=== PATIENT | female | born 1995 | race Caucasian/White ===

== ENCOUNTER 2016-12-29 15:35 | Emergency (ER) | payer OTHER ==
[~2016-12-29] VITALS: Ht 165.1 cm; Wt 59.4 kg
[2016-12-29 15:58] VITALS: TEMP 36.8; Ht 165.1 cm; Wt 59.4 kg
[2016-12-29] MEDS ORDERED: SODIUM CHLORIDE 0.9% 250ML 250 ML IV STA (16:31)
[2016-12-29] MEDS ORDERED: SODIUM CHLORIDE 0.9% 1000ML 1,000 ML IV STA (16:31)
[2016-12-29 16:44] LABS: BASO % 0.4 %; BASO ABS # 0.02 K/uL (0-0.2); COMPLETE YES; EOS % 1.9 %; HEMATOCRIT 43.7 % (37-47); LYMPH % 37.9 %; LYMPH ABS # 2.03 K/uL (1.2-3.4); MEAN CELL VOLUME 92.2 fL (80-100); MEAN CORPUSCULAR HEMOGLOBIN 31.6 pg (25-34); MEAN CORPUSCULAR HGB CONC 34.3 g/dl (32-36); MEAN PLATELET VOLUME 10.6 fL (7.4-10.4); MONO % 5.6 %; NEUT % 54.2 %; PLATELET COUNT 243 K/uL (130-400); RED BLOOD COUNT 4.74 M/uL (4.2-5.4); WHITE BLOOD COUNT 5.35 K/uL (4.8-10.8)
[2016-12-29 16:55] LABS: BUN/CREATININE RATIO 12.8 (10-20); CALCIUM 9.2 mg/dl (8.5-10.1); CREATININE 0.83 mg/dl (0.60-1.20); MAGNESIUM 2.2 mg/dl (1.8-2.4); POTASSIUM 3.8 mmol/L (3.5-5.1)
--- NOTE | 2016-12-29 16:58 | EMERGENCY ROOM VISIT NOTE ---
History Report prepared by Genie: Kaiden Finch Under the Supervision of: Dr. Taylor Buck M.D. First contact with patient: 16:09 Chief Complaint: ABDOMINAL PAIN Stated Complaint: ABDOMINAL/BACK PAIN, NAUSEA, DIARHEA Nursing Triage Summary: abd pain and nausea for greater than 1 week pt went to [facility] and referred to ER for ct and us nausea diarrhea first few days History of Present Illness The patient is a 21 year old female who presents to the Emergency Room with complaints of worsening left upper abdominal pain beginning ten days prior to arrival. She currently rates her discomfort as an 8/10 in severity. The patient associates nausea and upper left abdominal pain that radiates to her upper right abdomen and back with today's symptoms. She notes the abdominal pain has worsened over the past 3-4 days. She states she was seen by the [facility], and they ran some blood work. The patient notes she was seen by KOEZY today, who referred the patient to the ED for further blood work , an ultrasound, and a CT scan. She denies a family history of gallstones. The patient denies urinary symptoms, vomiting, and chance of . Source of History: patient Onset: ten days QA SPECIALIST Position: abdomen (LUQ) Symptom Intensity: 8/10 Timing: worsening Associated Symptoms: + abdominal pain, + back pain, + nausea, No urinary symptoms, No vomiting Review of Systems See HPI for pertinent positives & negatives. A total of 10 systems reviewed and were otherwise negative. Past Medical & Surgical Medical Problems: (1) No pertinent past medical history Family History Patient reports no known family medical history. Social History Smoking Status: Never Smoker Marital Status: single Occupation Status: [employer] student Current/Historical Medications Scheduled Control Pills ( Control Pills), 1 TAB PO DAILY Pantoprazole (Protonix), 40 MG PO DAILY Allergies Coded Allergies: No Known Allergies (Unverified , 12/29/16) Physical Exam Vital Signs Date Time Temp Pulse Resp B/P Pulse Ox O2 Delivery O2 Flow Rate FiO2 12/29/16 20:48 57 20 127/71 100 12/29/16 19:18 55 18 133/78 99 Room Air 12/29/16 17:04 47 12/29/16 16:50 50 20 114/78 100 Room Air 12/29/16 15:58 36.8 51 20 122/75 97 Room Air Physical Exam Vital signs reviewed. General: Well-appearing female, in no significant distress. HEENT: No scleral icterus, PERRLA, neck supple. Atraumatic. Cardiovascular: Regular rate and rhythm, no extra sounds. Pulmonary: Clear to auscultation bilaterally, normal work of breathing. Abdomen: Epigastric and left upper quadrant tenderness, minimal guarding. Soft, nondistended, positive bowel sounds. Musculoskeletal: Atraumatic, no peripheral edema. Neurologic: Patient awake alert and oriented x 3, full strength in all 4 extremities. Cranial nerves 2 through 12 grossly intact. Skin: Warm, dry, no rash Medical Decision & Procedures ER Provider Diagnostic Interpretation: X-ray results as stated below per my interpretation and radiologist interpretation. Other radiology results as stated below per my review and radiologist interpretation: KUB HISTORY: Epigastric pain. Left upper quadrant pain. COMPARISON: None. FINDINGS: The bowel gas pattern is unremarkable. There are no dilated loops of small bowel to suggest an obstruction. There is oral contrast seen throughout the bowel and intravenous contrast within the renal collecting systems and bladder. This could obscure a renal or ureteral stone. No pneumoperitoneum or pneumatosis. IMPRESSION: Unremarkable bowel gas pattern. No evidence for bowel obstruction. Electronically signed by: Sebastien Lake M.D. 12/29/2016 7:29 PM ABDOMINAL ULTRASOUND, RIGHT UPPER QUADRANT HISTORY: Epigastric pain, GB. COMPARISON: None. FINDINGS: Pancreas: The pancreatic head is obscured by overlying bowel gas. The remaining portions of the pancreas are within normal limits. Liver: Unremarkable. Gallbladder: No gallbladder wall thickening. No gallstones. CBD: 2 mm. Right kidney: No hydronephrosis. IMPRESSION: No significant abnormality identified within the right upper quadrant. Electronically signed by: Sebastien Lake M.D. 12/29/2016 6:20 PM ABDOMEN AND PELVIS CT WITH IV AND ORAL CONTRAST CT DOSE: 258.32 mGy.cm HISTORY: epigastric LUQ pain TECHNIQUE: Multiaxial CT images of the abdomen and pelvis were performed following the use of intravenous and oral contrast. COMPARISON STUDY: Abdominal ultrasound 12/29/2016. FINDINGS: The lung bases are clear. No pneumoperitoneum. No pneumatosis. The liver, gallbladder, pancreas, spleen, adrenal glands, and kidneys are unremarkable. No retroperitoneal lymphadenopathy. No pelvic free fluid. The bladder, uterus, and bilateral adnexa are unremarkable. No bowel wall thickening or obstruction. Normal appendix. IMPRESSION: 1. No bowel wall thickening or obstruction. 2. Normal appendix. 3. No hydronephrosis. Electronically signed by: Sebastien Lake M.D. 12/29/2016 7:48 PM Laboratory Results 12/29/16 16:15 Red Blood Count 4.74, Mean Corpuscular Volume 92.2, Mean Corpuscular Hemoglobin 31.6, Mean Corpuscular Hemoglobin Concent 34.3, Mean Platelet Volume 10.6, Neutrophils (%) (Auto) 54.2, Lymphocytes (%) (Auto) 37.9, Monocytes (%) (Auto) 5.6, Eosinophils (%) (Auto) 1.9, Basophils (%) (Auto) 0.4, Neutrophils # (Auto) 2.90, Lymphocytes # (Auto) 2.03, Monocytes # (Auto) 0.30, Eosinophils # (Auto) 0.10, Basophils # (Auto) 0.02 12/29/16 16:15 Test 12/29/16 16:15 White Blood Count 5.35 K/uL (4.8-10.8) Red Blood Count 4.74 M/uL (4.2-5.4) Hemoglobin 15.0 g/dL (12.0-16.0) Hematocrit 43.7 % (37-47) Mean Corpuscular Volume 92.2 fL (80-100) Mean Corpuscular Hemoglobin 31.6 pg (25-34) Mean Corpuscular Hemoglobin Concent 34.3 g/dl (32-36) Platelet Count 243 K/uL (130-400) Mean Platelet Volume 10.6 fL (7.4-10.4) Neutrophils (%) (Auto) 54.2 % Lymphocytes (%) (Auto) 37.9 % Monocytes (%) (Auto) 5.6 % Eosinophils (%) (Auto) 1.9 % Basophils (%) (Auto) 0.4 % Neutrophils # (Auto) 2.90 K/uL (1.4-6.5) Lymphocytes # (Auto) 2.03 K/uL (1.2-3.4) Monocytes # (Auto) 0.30 K/uL (0.11-0.59) Eosinophils # (Auto) 0.10 K/uL (0-0.5) Basophils # (Auto) 0.02 K/uL (0-0.2) RDW Standard Deviation 40.1 fL (36.4-46.3) RDW Coefficient of Variation 11.8 % (11.5-14.5) Immature Granulocyte % (Auto) 0.0 % Immature Granulocyte # (Auto) 0.00 K/uL (0.00-0.02) Urine Color YELLOW Urine Appearance CLEAR (CLEAR) Urine pH 7.0 (4.5-7.5) Urine Specific [place] 1.023 (1.000-1.030) Urine Protein NEG (NEG) Urine Glucose (UA) NEG (NEG) Urine Ketones 1+ (NEG) Urine Occult Blood NEG (NEG) Urine Nitrite NEG (NEG) Urine Bilirubin NEG (NEG) Urine Urobilinogen NEG (NEG) Urine Leukocyte Esterase SMALL (NEG) Urine WBC (Auto) 10-30 /hpf (0-5) Urine RBC (Auto) 0-4 /hpf (0-4) Urine Hyaline Casts (Auto) 5-10 /lpf (0-5) Urine Epithelial Cells (Auto) >30 /lpf (0-5) Urine Bacteria (Auto) 1+ (NEG) Urine Test NEG (NEG) Anion Gap 13.0 mmol/L (3-11) Est Creatinine Clear Calc Drug Dose 94.9 ml/min Estimated GFR () 115.2 Estimated GFR (Non- 99.4 BUN/Creatinine Ratio 12.8 (10-20) Calcium Level 9.2 mg/dl (8.5-10.1) Magnesium Level 2.2 mg/dl (1.8-2.4) Total Bilirubin 0.5 mg/dl (0.2-1) Direct Bilirubin 0.1 mg/dl (0-0.2) Aspartate Amino Transf (AST/SGOT) 19 U/L (15-37) Alanine Aminotransferase (ALT/SGPT) 25 U/L (12-78) Alkaline Phosphatase 50 U/L (45-117) Total Protein 8.6 gm/dl (6.4-8.2) Albumin 4.8 gm/dl (3.4-5.0) Lipase 160 U/L (73-393) Date/Time Source Procedure Growth Status 12/29/16 16:15 Urine , Clean Catch Urine Culture - Final Gardnerella-Like Bacilli Lactobacillus Species Complete Laboratory results per my review. Medications Administered Medications (Trade) Dose Ordered Sig/Pino Route Start Time Stop Time Status Last Admin Dose Admin Sodium Chloride 250 ml @ 999 mls/hr Q16M STAT IV 12/29/16 16:31 12/29/16 16:46 DC 12/29/16 16:31 999 MLS/HR Sodium Chloride (Nss 1000ml) 1,000 ml @ 125 mls/hr Q8H STAT IV 12/29/16 16:31 12/29/16 21:21 DC 12/29/16 16:47 125 MLS/HR ED Course 1630: Past medical records reviewed. The patient was evaluated in room C5. A complete history and physical examination was performed. 1631: Ordered Sodium Chloride 1,000 ml @ 125 mls/hr IV, Sodium Chloride 250 ml @ 999 mls/hr IV. 2030: Upon reevaluation, the patient appeared to have improvement of her symptoms. I discussed findings with her. She verbalized agreement of the treatment plan. The patient was discharged home. Medical Decision Etiologies such as appendicitis, diverticulitis, PUD, biliary pathology, UTI, pancreatitis, obstruction, mesenteric ischemia, aortic pathology, infections, inflammatory bowel disease, renal colic, as well as others were entertained. This patient was in no distress. IV access was obtained and laboratory work was drawn. Patient's physical exam reveals a mild epigastric tenderness. Ultrasound of the right upper quadrant was performed and is negative. CT scan of the abdomen and pelvis was performed and reveals no evidence of acute abnormality. The patient was informed of the findings. Laboratory work was reassuring. The patient was placed on Protonix daily. She will drink plenty of fluids, avoid NSAIDs and alcohol. She'll follow-up with [facility] this week for reevaluation and return to the ER for worsening of symptoms or any medical concerns. Impression Primary Impression: Epigastric abdominal pain Scribe Attestation The scribe's documentation has been prepared under my direction and personally reviewed by me in its entirety. I confirm that the note above accurately reflects all work, treatment, procedures, and medical decision making performed by me. Departure Information Dispostion Home / Self-Care Prescriptions Pantoprazole (Protonix) 40 Mg Tab 40 MG PO DAILY, #30 TAB Prov: Taylor Buck M.D. 12/29/16 Referrals No Doctor, Assigned (PCP) Forms HOME CARE DOCUMENTATION FORM, IMPORTANT VISIT INFORMATION Patient Instructions My [facility] Additional Instructions Diagnosis: Epigastric abdominal pain Protonix 40 mg daily for 30 days. Avoid alcohol. Avoid aspirin, Aleve, Advil. Follow-up with [facility] this week for reevaluation. Return to the ER for worsening of symptoms or any medical concerns.
[2016-12-29] MEDS ORDERED: BCPILLS PO (17:05)
[2016-12-29 17:12] LABS: MANUAL MICROSCOPIC REQUIRED? NO; REVIEW REQ? NO; URINE APPEARANCE CLEAR (CLEAR); URINE BILIRUBIN NEG (NEG); URINE COLOR YELLOW; URINE EPITHELIAL CELL AUTO >30 /lpf (0-5); URINE NITRITE NEG (NEG); URINE SPECIFIC GRAVITY 1.023 (1.000-1.030); UROBILINOGEN NEG (NEG); ZZUR CULT IF INDIC CLEAN CATCH YES
[2016-12-29] MEDS ORDERED: OPTIRAY 320 IV PRN (17:15)
--- NOTE | 2016-12-29 18:21 | DIAGNOSTIC IMAGING REPORT ---
ABDOMINAL ULTRASOUND, RIGHT UPPER QUADRANT HISTORY: Epigastric pain, GB. COMPARISON: None. FINDINGS: Pancreas: The pancreatic head is obscured by overlying bowel gas. The remaining portions of the pancreas are within normal limits. Liver: Unremarkable. Gallbladder: No gallbladder wall thickening. No gallstones. CBD: 2 mm. Right kidney: No hydronephrosis. IMPRESSION: No significant abnormality identified within the right upper quadrant. Electronically signed by: Sebastien Lake M.D. 12/29/2016 6:20 PM Dictated Date/Time: 12/29/2016 6:19 PM
--- NOTE | 2016-12-29 19:30 | DIAGNOSTIC IMAGING REPORT ---
KUB HISTORY: Epigastric pain. Left upper quadrant pain. COMPARISON: None. FINDINGS: The bowel gas pattern is unremarkable. There are no dilated loops of small bowel to suggest an obstruction. There is oral contrast seen throughout the bowel and intravenous contrast within the renal collecting systems and bladder. This could obscure a renal or ureteral stone. No pneumoperitoneum or pneumatosis. IMPRESSION: Unremarkable bowel gas pattern. No evidence for bowel obstruction. Electronically signed by: Sebastien Lake M.D. 12/29/2016 7:29 PM Dictated Date/Time: 12/29/2016 7:26 PM
--- NOTE | 2016-12-29 19:49 | DIAGNOSTIC IMAGING REPORT ---
ABDOMEN AND PELVIS CT WITH IV AND ORAL CONTRAST CT DOSE: 258.32 mGy.cm HISTORY: epigastric LUQ pain TECHNIQUE: Multiaxial CT images of the abdomen and pelvis were performed following the use of intravenous and oral contrast. COMPARISON STUDY: Abdominal ultrasound 12/29/2016. FINDINGS: The lung bases are clear. No pneumoperitoneum. No pneumatosis. The liver, gallbladder, pancreas, spleen, adrenal glands, and kidneys are unremarkable. No retroperitoneal lymphadenopathy. No pelvic free fluid. The bladder, uterus, and bilateral adnexa are unremarkable. No bowel wall thickening or obstruction. Normal appendix. IMPRESSION: 1. No bowel wall thickening or obstruction. 2. Normal appendix. 3. No hydronephrosis. Electronically signed by: Sebastien Lake M.D. 12/29/2016 7:48 PM Dictated Date/Time: 12/29/2016 7:40 PM
[2016-12-29] MEDS ORDERED: PANT40TA PO (20:41)
[2016-12-29 20:48] VITALS: BP 127/71; PULSE 57; O2SAT 100
--- NOTE | 2016-12-31 17:22 | Pharmacy Progress Note ---
ED Pharmacist Culture FollowUp Date of Service: Dec 31, 2016. Gardnerella and lactobacillus growing from the patient's urine culture. Patient denied urinary symptoms, UA with > 30 epithelial cells. These organisms are likely contaminants. No intervention required. Case discussed with Dr. Buck.
== END 2016-12-29 20:50 | disposition home or self-care (01) ==
LOC: C.EDB 15:36 → C.EDC 20:50
DX: R10.13 Epigastric pain (principal)

== ENCOUNTER 2017-01-12 01:53 | Emergency (ER) | payer OTHER ==
[~2017-01-12] VITALS: Ht 162.6 cm; Wt 64.0 kg
[~2017-01-12 01:53] MED LIST: BCPILLS PO; PANT40TA PO
[2017-01-12 02:07] VITALS: TEMP 36.6; O2SAT 98; Ht 162.6 cm; Wt 64.0 kg
[2017-01-12] MEDS ORDERED: ONDANSETRON 4MG OD TAB PO STA (02:22)
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
[2017-01-12] MEDS ORDERED: PANT40TA PO (02:53)
[2017-01-12 05:49] LABS: URINE APPEARANCE CLEAR (CLEAR); URINE BILIRUBIN NEG (NEG); URINE COLOR YELLOW; URINE NITRITE NEG (NEG); URINE SPECIFIC GRAVITY 1.004 (1.000-1.030); UROBILINOGEN NEG (NEG); ZZUR CULT IF INDIC CLEAN CATCH NO
[2017-01-12 05:53] LABS: MANUAL MICROSCOPIC REQUIRED? NO; REVIEW REQ? NO
[2017-01-12 06:09] LABS: BENZODIAZEPINE, URINE NEG (NEG); COCAINE,URINE NEG (NEG); PHENCYCLIDINE, URINE NEG (NEG)
[2017-01-12] MEDS ORDERED: LEVONORGESTREL (EMERGENCY OC) 1.5 MG TAB PO ONE (08:15)
[2017-01-12] MEDS ORDERED: CEFTRIAXONE SOD INJ 250 MG/ML VIAL IM ONE (08:15)
[2017-01-12] MEDS ORDERED: AZITHROMYCIN 250 MG TAB PO ONE (08:15)
[2017-01-12] MEDS ORDERED: CEFTRIAXONE SOD 350MG/ML 1 GM VIAL IM ONE (08:16)
[2017-01-12 08:51] VITALS: BP 104/50; PULSE 71; O2SAT 95
[2017-01-23 15:12] LABS: 7-AMINOFLUNITRAZEPAM URINE <10 ng/mL; NOR-FLUNITRAZEPAM URINE <10 ng/mL; ROHYPNOL URINE <10 ng/mL; SYNTHETIC CANNABINOIDS QL URIN NEGATIVE (Negative)
== END 2017-01-12 08:59 | disposition home or self-care (01) ==
LOC: EDBD 01:53 → C.EDA 01:57
DX: F10.129 Alcohol abuse with intoxication, unspecified (principal); T76.21XA Adult sexual abuse, suspected, initial encounter; Z79.3 Long term (current) use of hormonal contraceptives; Z79.899 Other long term (current) drug therapy

== ENCOUNTER → 2017-01-15 | Outpatient (CLI) | payer OTHER ==
--- NOTE | 2017-01-15 12:58 | DIAGNOSTIC IMAGING REPORT ---
NUCLEAR GASTRIC EMPTYING STUDY: CLINICAL HISTORY: R10.9 Abdominal painR63.4 Abnormal weight [id number] COMPARISON STUDY: None TECHNIQUE: Following the oral administration of 1.1 mCi of technetium 99m sulfur colloid in egg sandwich and 8 ounces of water, static abdominal images are performed anteriorly and posteriorly at 0 minutes, 1 hour, 2 hours, and 4 hour time intervals. Gastric emptying was calculated utilizing the geometric mean method. FINDINGS: There is approximately 77 % gastric activity remaining at the 1 hour time interval, 40 % at the 2 hour time interval (normal is less than 60%), and 3 % remaining at the 4 hour time interval (normal is less than 10%). These findings are consistent with a normal study IMPRESSION: Findings are consistent with a normal study. Electronically signed by: Jack Story M.D. 01/15/2017 12:56 PM Dictated Date/Time: 01/15/2017 12:56 PM
== END | disposition home or self-care (01) ==
LOC: C.NUCL 07:56
PROVIDERS: ATTEND Internal Medicine
DX: R63.4 Abnormal weight loss (principal); R10.9 Unspecified abdominal pain